=== PATIENT | female | born 1990 ===

== ENCOUNTER 2016-05-31 21:15 | Emergency (ER) | payer OTHER ==
[2016-05-31 21:15] VITALS: BMI 22.1
[2016-05-31 21:29] VITALS: RESP 16; O2SAT 100
--- NOTE | 2016-05-31 22:15 | ED PDOC ---
HPI: Female Pain Time Seen by Provider: 05/31/16 22:05 Chief Complaint (Nursing): Female Genitourinary Chief Complaint (Provider): : cramping, spotting History Per: Patient History/Exam Limitations: no limitations Onset/Duration Of Symptoms: Days (3), Waxing/Waning Severity: Mild Quality Of Discomfort: Cramping Additional History Per: Patient Additional Complaint(s): 26 y/o female, approx 9 weeks gestation, presents with intermittent brown/light pink vaginal spotting x 3 days. Associated pelvic cramping x 2 days, worse today. Denies fever, nausea/vomiting, changes in bowel movements, dysuria, hematuria, vaginal discharge. Abnormal Vaginal Bleeding: Yes Last Menstral Period: 03/26/16 : 1 Para: 0 Miscarriage: 0 Past Medical History Reviewed: Historical Data, Nursing Documentation, Vital Signs Vital Signs: Last Vital Signs Temp 97.8 F 05/31/16 21:24 Pulse 82 05/31/16 21:24 Resp 16 05/31/16 21:24 BP 103/63 05/31/16 21:24 Pulse Ox 100 05/31/16 21:24 - Medical History PMH: Gall Bladder Disease (POL[facility]) Denies: Chronic Kidney Disease - Surgical History Surgical History: Cholecystectomy - Family History Family History: States: Unknown Family Hx - Living Arrangements Living Arrangements: With Family - Immunization History Hx Tetanus Toxoid Vaccination: No Hx Influenza Vaccination: No Hx Pneumococcal Vaccination: No - Home Medications Home Medications: Ambulatory Orders Medication Instructions Recorded MetFORMIN [glucOPHAGE] 1,000 mg PO DAILY 04/18/16 Pantoprazole [Protonix] 40 mg PO DAILY 04/18/16 Dexlansoprazole [Dexilant] 60 mg PO DAILY 04/28/16 - Allergies Allergies/Adverse Reactions: Allergies Allergy/AdvReac Type Severity Reaction Status Date / Time No Known Allergies Allergy Verified 10/26/15 12:19 Review of Systems ROS Statement: Except As Marked, All Systems Reviewed And Found Negative Genitourinary Female: Positive for: Vaginal Bleeding, Pelvic Pain Physical Exam - Reviewed Nursing Documentation Reviewed: Yes Vital Signs Reviewed: Yes - Physical Exam Appears: Positive for: Well, Non-toxic, No Acute Distress Head Exam: Positive for: ATRAUMATIC, NORMAL INSPECTION, NORMOCEPHALIC Skin: Positive for: Normal Color Eye Exam: Positive for: Normal appearance ENT: Positive for: Normal ENT Inspection Cardiovascular/Chest: Positive for: Regular Rate, Rhythm Respiratory: Positive for: Normal Breath Sounds Gastrointestinal/Abdominal: Positive for: Bowel Sounds, Soft, Tenderness (llq, suprapubic, rlq) Pelvic Exam: Positive for: Other (patient refusing pelvic exam) Back: Positive for: Normal Inspection Extremity: Positive for: Normal ROM Neurologic/Psych: Positive for: Alert, Oriented - Laboratory Results Result Diagrams: 05/31/16 22:34 05/31/16 22:13 Urine POC: Positive Urine dip results: Positive for: Leukocyte Esterase. Negative for: Blood, Nitrate, Ketones - ECG O2 Sat by Pulse Oximetry: 100 - Progress ED Course And Treament: labs, urine, OB u/s EXAM: US First Trimester, Transabdominal. CLINICAL HISTORY: 26 years old, female; Signs and symptoms; Lmp or gestational age (in weeks): ; Antepartum complications; Other: Spotting; ; Additional info: Approx 9wks; Spotting , cramping TECHNIQUE: Real-time transabdominal obstetrical ultrasound of the maternal pelvis and a first trimester with image documentation. EXAM DATE/TIME: Exam ordered 05/31/2016 10:12 PM COMPARISON: No relevant prior studies available. FINDINGS: Gestation: History is provided of estimated gestational age of 9 weeks 2 days by LMP. An intrauterine gestational sac is demonstrated. Mean sac diameter 3.1 cm, the crown-rump length 2.2 cm in keeping with estimated gestational age of 8 weeks 6 days. heart motion demonstrated by M-mode Doppler with a heart rate of 174 beats per minute. There is a question small subchorionic bleed measuring 1.5 x 0.7 x 1.9 cm. another area which could possibly represent nicole-gestational glide measures approximately 2.2 centimeters x 5 mm on a single image not otherwise measured. a yolk sac is demonstrated. Placenta/amniotic fluid: See above. Uterus/cervix: Unremarkable. No myometrial mass. The cervix is closed and is approximately 4.5 cm in length. Ovaries: The right ovary measures 2.8 x 1.4 x 3.1 cm. Left ovary measures 2.4 x 2.6 x 4.0 cm noting an approximately 3 cm simple cyst favored to be physiologic in the left ovary. Free fluid: No free fluid. Other findings: As per the radiologic technologist chief, no transvaginal study is performed related to patient refusal of that portion of the examination. IMPRESSION: Live intrauterine gestation noting suspicion for possible small subchorionic hemorrhage. No findings to suggest ovarian torsion Patient educated on findings, advised pelvic rest. Follow up [facility] Network Administrator in 2-3 days. Return to ED for worsening/concerning symptoms. Disposition - Clinical Impression Clinical Impression: Subchorionic bleed, Abdominal pain during - Patient ED Disposition Is Patient to be Admitted: No Counseled Patient/Family Regarding: Studies Performed, Diagnosis, Need For Followup - Disposition Disposition: Routine/Home Disposition Time: 00:51 Condition: STABLE Additional Instructions: Follow up with mechanical engineering technician in 2-3 days. Pelvic rest. Return to ED for worsening/concerning symptoms. Instructions: Subchorionic Hemorrhage (ED), Abdominal Pain in (ED)
[2016-05-31 23:02] LABS: BASO # 0.1 K/uL (0.0-0.2); BASO % 0.6 % (0.0-2.0); EOS # 0.3 K/uL (0.0-0.7); EOS % 3.1 % (0.0-4.0); HEMATOCRIT 35.7 % (34.0-47.0); LYMPH # 2.5 K/uL (1.0-4.3); LYMPH % 25.6 % (20.0-40.0); MEAN CELL VOLUME 82.2 fl (81.0-99.0); MEAN CORPUSCULAR HGB CONC 34.1 g/dL (33.0-37.0); MEAN PLATELET VOLUME 8.6 fl (7.2-11.7); MONO # 0.8 K/uL (0.0-0.8); MONO % 7.9 % (0.0-10.0); NEUT # 6.2 K/uL (1.8-7.0); NEUT % 62.8 % (50.0-75.0); NRBC % 0.1 % (0.0-0.0); RED CELL DISTRIBUTION WIDTH 13.1 % (11.5-14.5); WHITE BLOOD COUNT 9.9 K/uL (4.8-10.8)
[2016-05-31 23:15] LABS: ALB/GLOB RATIO 1.5 (1.0-2.1); ALKALINE PHOSPHATASE 55 U/L (38-126); ALT/SGPT 22 U/L (9-52); AST/SGOT 20 U/L (14-36); BILIRUBIN,TOTAL 0.2 mg/dl (0.2-1.3); BLOOD UREA NITROGEN 8 mg/dl (7-17); CALCIUM 9.9 mg/dL (8.4-10.2); CARBON DIOXIDE 21 mmol/L (22-30); CHLORIDE 104 mmol/L (98-107); GFR AFRICAN-AMERICAN > 60; GLUCOSE,RANDOM 90 mg/dL (65-105); POTASSIUM 3.7 MMOL/L (3.6-5.0); SODIUM 141 mmol/l (132-148); TOTAL PROTEIN 7.4 G/DL (6.3-8.2)
[2016-05-31 23:45] LABS: RBC URINE 2 /hpf (0-3); URINE BACTERIA OCC (<OCC); URINE BILIRUBIN NEGATIVE (NEGATIVE); URINE BLOOD NEGATIVE (NEGATIVE); URINE COLOR YELLOW (YELLOW); URINE GLUCOSE (UA) NEG (Normal); URINE KETONE NEGATIVE (NEGATIVE); URINE LEUKOCYTE ESTERASE SMALL Leu/uL (Negative); URINE PROTEIN NEGATIVE (NEGATIVE); URINE UROBILINOGEN 0.2-1.0 mg/dL (0.2-1.0); WBC URINE 4 /hpf (0-5)
--- NOTE | 2016-06-01 | US ---
EXAM: US First Trimester, Transabdominal. CLINICAL HISTORY: 26 years old, female; Signs and symptoms; Lmp or gestational age (in weeks): 03/27/16; Antepartum complications; Other: Spotting; ; Additional info: Approx 9wks; Spotting, cramping TECHNIQUE: Real-time transabdominal obstetrical ultrasound of the maternal pelvis and a first trimester with image documentation. EXAM DATE/TIME: Exam ordered 05/31/2016 10:12 PM COMPARISON: No relevant prior studies available. FINDINGS: Gestation: History is provided of estimated gestational age of 9 weeks 2 days by LMP. An intrauterine gestational sac is demonstrated. Mean sac diameter 3.1 cm, the crown-rump length 2.2 cm in keeping with estimated gestational age of 8 weeks 6 days. heart motion demonstrated by M-mode Doppler with a heart rate of 174 beats per minute. There is a question small subchorionic bleed measuring 1.5 x 0.7 x 1.9 cm. another area which could possibly represent nicole-gestational glide measures approximately 2.2 centimeters x 5 mm on a single image not otherwise measured. a yolk sac is demonstrated. Placenta/amniotic fluid: See above. Uterus/cervix: Unremarkable. No myometrial mass. The cervix is closed and is approximately 4.5 cm in length. Ovaries: The right ovary measures 2.8 x 1.4 x 3.1 cm. Left ovary measures 2.4 x 2.6 x 4.0 cm noting an approximately 3 cm simple cyst favored to be physiologic in the left ovary. Free fluid: No free fluid. Other findings: As per the mechanical engineering technologist, no transvaginal study is performed related to patient refusal of that portion of the examination. IMPRESSION: Live intrauterine gestation noting suspicion for possible small subchorionic hemorrhage. No findings to suggest ovarian torsion.
[2016-06-01 01:08] VITALS: BP 122/78; PULSE 83; TEMP 98.9
== END 2016-06-01 01:09 | disposition home or self-care (01) ==
LOC: H.ER 21:15
DX: O41.8X90 Other specified disorders of amniotic fluid and membranes, unspecified trimester, not applicable or unspecified (principal)